=== PATIENT | male | born 1950 | race Caucasian/White ===

== ENCOUNTER 2024-07-19 11:05 | Emergency (ER) | payer MEDICARE, OTHER ==
[~2024-07-19] VITALS: Ht 188 cm; Wt 81.6 kg
--- NOTE | 2024-07-19 11:11 | ERN ---
ED Note History of Present Illness Stated Complaint: RT ARM AND SHOULDER INJURY Chief Complaint: Upper Extremity Pain/Injury Time Seen by MD: 11:08 Dictation: PATIENT IS A 74-YEAR-OLD MALE HERE WITH COMPLAINTS OF RIGHT SHOULDER AND PROXIMAL FOREARM PAIN STATUS POST A SAME LEVEL TRIP FALL LAST MONDAY. STATES HE WAS PUMPING GAS WHEN HE TRIPPED AND FELL, LANDED ON HIS RIGHT ARM AND SHOUL ARNAUD. SWELLING TO THE PROXIMAL FOREARM WITH SHOULDER PAIN. STATES HE DID NOT GO TO THE DOCTOR BECAUSE HE THOUGHT CODE IF HE WOULD NOT GET BETTER IN A WEEK HE WOULD GO HAVE IT CHECKED OUT. HE STATES HE HAS BEEN TAKING AD[facility]IL [id number] FOR PAIN, HAS NOT BEEN TO SEE HIS PRIMARY CARE DOCTOR NO BLOOD THINNERS NO HEAD INJURY NO LOC NO TRAUMA ALERT CRITERIA Allergies: Coded Allergies: No Known Allergies (Unverified Allergy, Unknown, 07/19/24) Home Meds Active Scripts Ibuprofen (Ibuprofen 800 mg Tab) 800 Mg Tab, 800 MG PO Q8H PRN for fever or pain, #30 TAB 0 Refills Prov:LAURA HAYES DATA RECOVERY PLANNER 07/19/24 Past Medical History PSYCH History: no pertinent psych hx RN Note Reviewed/Agreed w/PFSH: Yes Review of System Dictation CONSTITUTIONAL: NEGATIVE EXCEPT FOR HPI HEAD/FACE: NEGATIVE EXCEPT FOR HPI EENT: NEGATIVE EXCEPT FOR HPI RESPIRATORY: NEGATIVE EXCEPT FOR HPI GASTROINTESTINAL/ABDOMINAL: NEGATIVE EXCEPT FOR HPI GENITOURINARY: NEGATIVE EXCEPT FOR HPI MUSCULOSKELETAL: NEGATIVE EXCEPT FOR HPI RIGHT SHOULDER/FOREARM PAIN INTEGUMENTARY: NEGATIVE EXCEPT FOR HPI NEUROLOGICAL/PSYCH: NEGATIVE EXCEPT FOR HPI HEMATOLOGIC/LYMPHATIC: NEGATIVE EXCEPT FOR HPI ALL SYSTEMS NEGATIVE, EXCEPT NOTED ABOVE. 13 POINT REVIEW OF SYSTEMS ASSESSED AND ALL NEGATIVE EXCEPT FOR ABOVE. Initial Vital Sign VS Vital Signs Date Time Temp Pulse Resp B/P (MAP) Pulse Ox O2 Delivery O2 Flow Rate FiO2 07/19/24 11:07 98.6 93 20 112/65 99 07/19/24 12:08 Room Air* 0 21 Physical Exam Dictation VITAL SIGNS REVIEWED GENERAL APPEARANCE: ALERT, ORIENTED X 3, MILD ACUTE DISTRESS, WELL DEVELOPED, NOURISHED. HEAD AND FACE: NON-TRAUMATIC. EYES: PERRL, PINK CONJUNCTIVAS, EYELID NO TRAUMA, ANTERIOR CHAMBER WITH ARCUS SENILIS. EARS: PINNAS INTACT AND NO SIGNS OF TRAUMA OR ERYTHEMA EAR CANALS CLEAR AND NO DISCHARGE TM NO ERYTHEMA NOSE: NO DISCHARGE, NO BLEEDING. OROPHARYNX: MOUTH NORMAL, TONGUE PINK, PHARYNX CLEAR,NO ERYTHEMA, TONSILS NO EXUDATES, NO ABSCESSES NOTED, MUCOUS MEMBRANE MOIST NECK: SUPPLE, NON-TENDER, NO THYROMEGALY, NO MASSES, NO JVD, NO BRUITS BREAST:DEFERRED CHEST:NO TENDERNESS, NO CREPITUS, NO PARADOXICAL MOVEMENT, NO RETRACTIONS LUNGS:CLEAR, WELL-VENTILATED, SYMMETRIC, NO RALES, NO WHEEZING, NO RHONCHI, NO STRIDOR, GOOD BREATH SOUNDS BILATERALLY HEART: REGULAR RATE, REGULAR RHYTHM, NO MURMUR, NO GALLOPS VASCULAR: NO PERIPHERAL EDEMA, ABDOMEN: SOFT, POSITIVE BOWEL SOUNDS, NONDISTENDED, NO GUARDING, NONTENDER, NO REBOUND, NO MASSES NO HEPATOMEGALY, NO SPLENOMEGALY, NO MCALLISTER'S SIGN, NO HERNIAS. RECTAL: DEFERRED GENITAL: DEFERRED NEUROLOGICAL: NORMAL SPEECH, MOTOR FUNCTION INTACT, SENSORY FUNCTION INTACT MUSCULOSKELETAL: NECK NONTENDER, FULL RANGE OF MOTION, BACK NONTENDER, FULL RANGE OF MOTION, EXTREMITIES: DECREASED RANGE OF MOTION TO RIGHT SHOULDER AND DELTOID. ADDITI ONALLY SWELLING AND TENDERNESS TO RIGHT PROXIMAL LATERAL FOREARM. DISTAL NEUROVASCULAR CMS INTACT SKIN: COLOR PINK, DRY, NO TURGOR, NO RASH, NO LACERATIONS, NO ABRASIONS, NO CONTUSIONS. LYMPHATIC: DEFERRED Results (Laboratory/Radiology) Laboratory/Radiology ELEVEN 50, RIGHT ELBOW X-RAY NEGATIVE EXCEPT FOR SOFT TISSUE SWELLING RIGHT HUMERAL NECK FRACTURE Labs Reviewed?: Yes ED Course ED Course Orders Procedure Category Date Status Time Shoulder Comp 2+Vws Rt RAD 07/19/24 Resulted 11:08 Forearm 2vws Rt RAD 07/19/24 Resulted 11:08 Acetaminophen 500mg PHA 07/19/24 Complete Tab (Tylenol 500mg T 11:30 Shoulder Immobilizer STEFANO 07/19/24 Complete 11:45 Acetaminophen With PHA 07/19/24 Complete Codeine (Tylenol-Code 12:00 Current Medications Medications (Trade) Dose Ordered Sig/Janessa Route PRN Reason Start Time Stop Time Status Last Admin Dose Admin Acetaminophen (TYLenol 500MG TAB) 1,000 mg ONCE ONCE PO 07/19/24 11:30 07/19/24 11:48 DC 07/19/24 11:45 Acetaminophen/ Codeine Phosphate (TYLenol-coDEINE TAB) 2 tab ONCE ONCE PO 07/19/24 12:00 07/19/24 12:01 DC 07/19/24 12:03 Vital Signs Date Time Temp Pulse Resp B/P (MAP) Pulse Ox O2 Delivery O2 Flow Rate FiO2 07/19/24 12:08 98.6 88 20 115/67 99 Room Air* 0 21 07/19/24 11:07 98.6 93 20 112/65 99 1150, DISTAL NEUROVASCULAR CMS INTACT POST PLACEMENT OF SHOULDER IMMOBILIZER PATIENT DISCHARGED HOME TO FOLLOW UP WITH DR. DUNCAN IN THE NEXT FEW DAYS, CALL FOR AN APPOINTMENT.. Medical Decision Making MDM MEDICAL DISCHARGE MAKING BASED ON X-RAYS OF ALL PAINFUL AREAS TO THE LEFT ARM. PATIENT HAS POSITIVE HUMERAL NECK FRACTURE SHOULDER IMMOBILIZER PLACED WITH DISTAL NEUROVASCULAR CMS INTACT TO RIGHT ARM. RIGHT DISCHARGED HOME WITH TYLENOL THREE AND TOLD TO FOLLOW UP WITH DR. DUNCAN IN THE NEXT 1-2 DAYS, CALL FOR AN APPOINTMENT. DX & DISP Disposition: Discharge Departure Impression: Primary Impression: Fracture of neck of right humerus Additional Impression: Fall Condition: Stable Scripts Ibuprofen (Ibuprofen 800 mg Tab) 800 Mg Tab 800 MG PO Q8H PRN for fever or pain, #30 TAB 0 Refills Prov: LAURA HAYES DATA RECOVERY PLANNER 07/19/24 Additional Instructions: FOLLOW-UP WITH PRIMARY CARE PROVIDER IN 1 TO 2 DAYS. TAKE MEDICATIONS DIRECTED HERE IN THE EMERGENCY ROOM. OKAY TO CONTINUE HOME MEDICATIONS UNLESS OTHERWISE DISCUSSED DURING YOUR VISIT IN THE EMERGENCY ROOM TODAY. RETURN TO YOUR NEAREST EMERGENCY ROOM IF SYMPTOMS WORSEN OR IF THERE IS NO IMPROVEMENT. CALL 911 IF YOU NEED IMMEDIATE ASSISTANCE. TAKE TYLENOL OR MOTRIN [id number] NEEDED AND IF NO CONTRAINDICATIONS ARE PRESENT. INCREASE ORAL HYDRATION. A WOUND CULTURE OR URINE CULTURE WAS ORDERED HERE IN THE EMERGENCY ROOM DEPARTMENT PLEASE FOLLOW-UP WITH PRIMARY CARE PROVIDER AND ADVISE THEM TO GET REPEAT PORTS FROM OUR FACILITY. IF YOU HAD ANY VANDANA WRAP/SPLINTS THAT WERE APPLIED HERE, PLEASE DO NOT REMOVE THEM UNTIL YOU SEE YOUR PRIMARY CARE OR SPECIALTY. SHOULDER IMMOBILIZER AND NO WEIGHT-BEARING UNTIL CLEARED BY ORTHOPEDIC SURGERY, CALL FOR AN APPOINTMENT TODAY. Referrals: LINDA STRONG (PCP) JENNIFER DUNCAN DO Time of Disposition: 11:50 I have reviewed the case, and I agree with, Diagnosis and Plan I performed this substantive portion of this visit. I have reviewed and personally made and approve the management plan that is documented in the note by myself or the XUAN. I acknowledge full responsibility for the patient's management plan. LAURA HAYES NP Jul 19, 2024 11:11 ROSA ELENA FISHER MD Jul 19, 2024 14:07
[2024-07-19] MEDS: acetaMINOPHEN 500 MG TABLET PO ONE (11:45)
[2024-07-19] MEDS ORDERED: IBUP-2077 PO (11:52)
[2024-07-19] MEDS: acetaMINOPHEN WITH coDEINE 1 TAB TAB PO ONE (12:03)
[2024-07-19 12:08] VITALS: BP 115/67; PULSE 88; RESP 20; TEMP 98.6; O2SAT 99
--- NOTE | 2024-07-19 12:14 | HMCIMG ---
SHOULDER COMP 2+VWS RT HISTORY: Right shoulder pain COMPARISON: None TECHNIQUE: 2 images of right shoulder were obtained. FINDINGS: Fracture displacement is seen involving the right humeral neck. Subtle dislocation cannot be excluded. Degenerative changes are seen. IMPRESSION: 1. Findings as described above.
--- NOTE | 2024-07-19 12:14 | HMCIMG ---
FOREARM 2VWS RT HISTORY: Pain COMPARISON: None TECHNIQUE: 3 images of right forearm were obtained. FINDINGS: There is no acute displaced fracture or dislocation. Degenerative changes are seen. IMPRESSION: 1. Findings as described above.
== END 2024-07-19 12:32 | disposition home or self-care (01) ==
LOC: EDH 11:05
DX: S42.211A Unspecified displaced fracture of surgical neck of right humerus, initial encounter for closed fracture (principal); Z79.899 Other long term (current) drug therapy; W01.0XXA Fall on same level from slipping, tripping and stumbling without subsequent striking against object, initial encounter; Y93.89 Activity, other specified; Y92.89 Other specified places as the place of occurrence of the external cause; Y99.8 Other external cause status
CPT/HCPCS: 29105; 73030; 73090; 99284

== ENCOUNTER 2024-08-13 18:10 | Emergency (ER) | payer OTHER ==
[~2024-08-13] VITALS: Ht 188 cm; Wt 81.6 kg
[2024-08-13 18:10] VITALS: BP 163/90; PULSE 115; RESP 20; TEMP 98.2
[~2024-08-13 18:10] MED LIST: IBUP-2077 PO
--- NOTE | 2024-08-13 20:22 | ERN ---
General Chief Complaint: Wound Check Stated Complaint: S/P SURGICAL WOUND CHECK Time Seen by MD: 18:21 Time Seen by Midlevel: 18:21 Source: patient History of Present Illness Initial Comments Patient is a 74-year-old male being brought in by for evaluation of a postsurgical incision. Patient reports having right shoulder surgery several days ago. Patient was supposed to have been discharged on pain medication in his sling however patient has not been using the sling has been sleeping on his right shoulder. was concerned that may be he re-injured himself. No fever, chills, or any other symptoms reported at this time. Allergies: Coded Allergies: No Known Allergies (Unverified Allergy, Unknown, 07/19/24) Home Meds Active Scripts Ibuprofen (Ibuprofen 800 mg Tab) 800 Mg Tab, 800 MG PO Q8H PRN for fever or pain, #30 TAB 0 Refills Prov:LAURA HAYES Jamarcus [employer]ATIONAL [employer]ION RECRUITER 07/19/24 Past Medical History Past Medical History: Diabetes-Type II Past Surgical History: Other Surgical History Other: RIGHT HUMERUS ROS Dictation CONSTITUTIONAL: Negative except for HPI HEAD/FACE: Negative except for HPI EENT: Negative except for HPI RESPIRATORY: Negative except for HPI GASTROINTESTINAL/ABDOMINAL: Negative except for HPI GENITOURINARY: Negative except for HPI MUSCULOSKELETAL: Negative except for HPI INTEGUMENTARY: Negative except for HPI NEUROLOGICAL/PSYCH: Negative except for HPI HEMATOLOGIC/LYMPHATIC: Negative except for HPI All Systems Negative, Except as noted above. 13 point review of systems assessed and all negative except for above. Physical Exam Physical Exam Dictation Vital Signs reviewed General Appearance: Alert, oriented x 3, no acute distress, well developed, nourished. Head and Face: non-traumatic. Eyes: PERRL, pink conjunctivas, eyelid no trauma, anterior chamber with arcus senilis. Ears: Pinnas intact and no signs of trauma or erythema ear canals clear and no discharge TM no erythema Nose: No discharge, no bleeding. Oropharynx: Mouth normal, tongue pink, pharynx clear,no erythema, tonsils no exudates, no abscesses noted, mucous membrane moist Neck: Supple, non-tender, no thyromegaly, no masses, no JVD, no bruits Breast:Deferred Chest:No tenderness, no crepitus, no paradoxical movement, no retractions Lungs:Clear, well-ventilated, symmetric, no rales, no wheezing, no rhonchi, no stridor, good breath sounds bilaterally Heart: Regular rate, regular rhythm, no murmur, no gallops Vascular: no peripheral edema, Abdomen: Soft, positive bowel sounds, nondistended, no guarding, nontender, no rebound, no masses no hepatomegaly, no splenomegaly, no Bermudez's sign, no hernias. Rectal: Deferred Genital: Deferred Neurological: Normal speech, motor function intact, sensory function intact Musculoskeletal: Neck nontender, full range of motion, back nontender, full range of motion, Extremities: nontender, full range of motion Skin: There is bruising over the right anterior shoulder that extends into the anterior chest wall, is a postsurgical incision right proximal humerus which appears to be well with no evidence infection or abscess. There was no erythema or induration noted Lymphatic: Deferred MDM MDM: Patient is a 74-year-old male being brought in by for evaluation of a postsurgical incision. Patient reports having right shoulder surgery several days ago. Patient was supposed to have been discharged on pain medication in his sling however patient has not been using the sling has been sleeping on his right shoulder. was concerned that may be he re-injured himself. No fever, chills, or any other symptoms reported at this time. On physical examination patient is in no acute distress. There is bruising over the right anterior shoulder that extends into the anterior chest wall, is a postsurgical incision right proximal humerus which appears to be well with no evidence i nfection or abscess. There was no erythema or induration noted. Postsurgical incision does not appear to be infected at this time. X-ray of the right shoulder does not show any acute abnormalities. There was no fractures or dislocation. Hardware appears to be in place. The patient will be discharged home with supportive management. Patient was advised to keep his appointment with aerotriangulation specialist for outpatient evaluation. Differential diagnosis: Postsurgical wound evaluation, cellulitis abscess There are no social concerns with this patient. Prescription drug management Prescriptions will include: None Medical management and examination interpretation discussions were had by me with other qualified healthcare professionals as indicated for the patient's care. ED Course Orders Procedure Category Date Status Time Morphine 2mg Syg PHA 08/13/24 Complete (Morphine 2mg Syg) 20:00 Ondansetron Odt 4mg PHA 08/13/24 Complete Tab (Zofran 4mg Odt) 20:00 Shoulder Comp 2+Vws Rt RAD 08/13/24 Resulted 19:52 *Nursing CPOE 08/13/24 Transmitted Communication: 19:52 Slmyriam AGARWAL 08/13/24 Complete 19:52 Current Medications Medications (Trade) Dose Ordered Sig/Janessa Route PRN Reason Start Time Stop Time Status Last Admin Dose Admin Morphine Sulfate (morPHINE 2MG SYG) 2 mg ONCE ONCE IM 08/13/24 20:00 08/13/24 20:01 DC 08/13/24 20:25 Ondansetron HCl (zoFRAN 4MG ODT) 4 mg ONCE ONCE SL 08/13/24 20:00 08/13/24 20:01 DC 08/13/24 20:25 Vital Signs Date Time Temp Pulse Resp B/P (MAP) Pulse Ox O2 Delivery O2 Flow Rate FiO2 08/13/24 18:10 98.2 115 20 163/90 99 Room Air 0 [place] [address] [place] [address] IMAGING REPORT Signed PATIENT: DEYANIRA KAMARA MR#: [id number] : 1950 SEX: M AGE: 74 LOCATION: ED ORDER 52 STATUS: [facility] REPORT#: [id number] SERVICE 51 REASON: post surgical x ray ORDERING PHYSICIAN: EVELIO SIMS PROCEDURE: SHOL 2V RT - SHOULDER COMP 2+VWS RT SHOULDER COMP 2+VWS RT HISTORY: Post surgery COMPARISON: None TECHNIQUE: 2 images of right shoulder were obtained. FINDINGS: Orthopedic fixation plates and screws are seen traversing the fracture site of the right proximal humerus. No dislocation is seen. Degenerative changes are seen. IMPRESSION: 1. Findings as described above. DICTATED BY: JENNIFER ROSAS MD DATE: 08/13/242210 ELECTRONICALLY SIGNED BY: JENNIFER ROSAS MD DATE: 08/13/242221 DX & DISP Disposition: Discharge Departure Impression: Primary Impression: Encounter for evaluation of wound Condition: Stable Additional Instructions: Your right shoulder x-ray is stable. Hardware appears to be in place. Continue with pain medication as prescribed. Follow up with aerotriangulation specialist outpatient. Return to the ER for develop any new or worsening symptoms. Referrals: LINDA STRONG (PCP) TRACEY GOMEZ MD Time of Disposition: 20:35 I have reviewed the case, and I agree with, Diagnosis and Plan I performed the substantive portion of the visit. I have reviewed and personall y made and approve the management plan that is documented in the note by myself or the XUAN. I acknowledge for responsibility for the patient's management plan. EVELIO SIMS Aug 13, 2024 20:22
[2024-08-13] MEDS: morPHINE 2 MG SYG IM ONE (20:25)
[2024-08-13] MEDS: ondanSETRON ODT 4MG TAB SL ONE (20:25)
--- NOTE | 2024-08-13 20:36 | NUR ---
DRESSING TO R SHOULDER REDRESSED, SLING APPLIED TO R ARM. PATIENT TOLERATED WELL
--- NOTE | 2024-08-13 22:22 | HMCIMG ---
SHOULDER COMP 2+VWS RT HISTORY: Post surgery COMPARISON: None TECHNIQUE: 2 images of right shoulder were obtained. FINDINGS: Orthopedic fixation plates and screws are seen traversing the fracture site of the right proximal humerus. No dislocation is seen. Degenerative changes are seen. IMPRESSION: 1. Findings as described above.
== END 2024-08-13 20:40 | disposition home or self-care (01) ==
LOC: EDH 18:10
DX: S40.011A Contusion of right shoulder, initial encounter (principal); E11.9 Type 2 diabetes mellitus without complications; X58.XXXA Exposure to other specified factors, initial encounter; Y93.89 Activity, other specified; Y92.89 Other specified places as the place of occurrence of the external cause; Y99.8 Other external cause status
CPT/HCPCS: 99283; 73030; 96372; J2270